=== PATIENT | male | born 1980 | race Caucasian/White ===

== ENCOUNTER 2018-12-06 13:36 | Emergency (ER) | payer OTHER ==
[~2018-12-06] VITALS: Ht 172.7 cm; Wt 107.5 kg
[2018-12-06] MEDS ORDERED: VITAMIN D3400 UNIT PO (13:43)
[2018-12-06] MEDS ORDERED: OYSTER SHELL C500 MG PO (13:44)
[2018-12-06] MEDS ORDERED: PRINIVIL10 MG PO (13:44)
[2018-12-06] MEDS ORDERED: RISPERDAL2 MG PO (13:44)
[2018-12-06] MEDS ORDERED: NAPROSYN500 MG PO (14:59)
[2018-12-06] MEDS ORDERED: TRAMADOL 50 MG50 MG PO (14:59)
[2018-12-06 15:14] VITALS: BP 133/80
== END 2018-12-06 15:15 | disposition home or self-care (01) ==
LOC: ER 13:36
DX: S01.511A Laceration without foreign body of lip, initial encounter (principal); S39.012A Strain of muscle, fascia and tendon of lower back, initial encounter; F17.210 Nicotine dependence, cigarettes, uncomplicated; Z88.8 Allergy status to other drugs, medicaments and biological substances; V09.20XA Pedestrian injured in traffic accident involving unspecified motor vehicles, initial encounter; Y93.42 Activity, yoga; Y92.488 Other paved roadways as the place of occurrence of the external cause; Y93.01 Activity, walking, marching and hiking; Y92.410 Unspecified street and highway as the place of occurrence of the external cause; Y99.8 Other external cause status